=== PATIENT | male | born 1950 | race Caucasian/White ===

== ENCOUNTER 2017-08-03 07:38 | Day surgery (SDC) | payer MEDICARE ==
[2017-08-02 15:24] LABS: BASOPHILS % (AUTO) 0.1 % (0-1); EOSINOPHILS # (AUTO) 0.2 X10'3 (0-0.9); EOSINOPHILS % (AUTO) 2.5 % (0-6); LYMPHOCYTES # (AUTO) 1.4 X10'3 (1.1-4.8); LYMPHOCYTES % (AUTO) 22.6 % (21-51); MEAN CORPUSCULAR HEMOGLOBIN 30.4 PG (27.0-31.0); MEAN CORPUSCULAR HGB CONC 33.6 % (33.0-36.5); MEAN CORPUSCULAR VOLUME 90.4 FL (78-98); MEAN PLATELET VOLUME 8.6 FL (7.4-10.4); MONOCYTES # (AUTO) 0.6 X10'3 (0-0.9); MONOCYTES % (AUTO) 9.1 % (2-12); NEUTROPHILS # (AUTO) 4.1 X10'3 (1.8-7.7); NEUTROPHILS % (AUTO) 65.7 % (42-75); PRE OP HEMATOCRIT 52.2 % (42.0-52.0); PRE OP HEMOGLOBIN 17.5 g/dL (14.0-17.9); PRE OP PLATELET COUNT 151 X10'3 (140-440); RED BLOOD COUNT 5.77 X10'6 (4.70-6.10); RED CELL DISTRIBUTION WIDTH 15.2 % (11.5-14.5)
[2017-08-02 15:35] LABS: PRE OP PROTIME 10.6 SECONDS (9.0-12.0)
[2017-08-02 15:39] LABS: ALBUMIN 3.9 G/DL (3.4-5.0); ALKALINE PHOSPHATASE 99 IU/L (46-116); BLOOD UREA NITROGEN 12 MG/DL (7-18); BUN/CREATININE RATIO 11.8 (5.4-32.0); CHLORIDE 102 MMOL/L (99-107); CREATININE 1.02 MG/DL (0.60-1.10); PRE OP ALT 48 U/L (30-65); PRE OP ANION GAP 8 (8-16); PRE OP AST 29 U/L (10-37); PRE OP BILIRUB, TOTAL 0.6 MG/DL (0.0-1.0); PRE OP GLUCOSE 128 MG/DL (70-104); PRE OP POTASSIUM 4.1 MMOL/L (3.4-5.1); PRE OP SODIUM 140 MMOL/L (135-145); TOTAL CARBON DIOXIDE 30.4 MMOL/L (24-32); eGFR 73 ML/MIN
[2017-08-03] VITALS (8 sets, daily range): BP systolic 114–150; BP diastolic 77–89
[~2017-08-03] VITALS: Ht 188 cm; Wt 106.6 kg
[~2017-08-03 07:38] MED LIST: CANA300T PO; FLO0.4C PO; ROPIVAcaine 0.5% (5mg/ml) 30ml vial ONE; ROSU40TA PO; ceFAZolin 2gm in dextrose, iso 100 ML IV ONE; famotidine 20mg tablet PO ONE; ringers solution, lacted 1,000 ML IV SCH
[2017-08-03] MEDS ORDERED: ringers solution, lacted 1,000 ML IV SCH (09:17)
[2017-08-03] MEDS ORDERED: meperidine/PF 25mg/ml syringe IV PRN ×3 (09:20)
[2017-08-03] MEDS ORDERED: ondansetron/PF 4mg/2ml inj IV PRN (09:20)
[2017-08-03] MEDS ORDERED: proCHLORperazine 10 MG/2 ml inj IV PRN (09:20)
[2017-08-03] MEDS ORDERED: morphine 4 MG/ML inj SYRINge IV PRN ×2 (09:20)
[2017-08-03] MEDS ORDERED: LIDOcaine 0.5% (5mg/ml) 50ml vial ONE (10:01)
[2017-08-03] MEDS ORDERED: fentaNYL/PF 50MCG/1 ML 2ML syringe ONE ×2 (10:12→10:49)
[2017-08-03] MEDS ORDERED: MIDAZolam 5mg/5ml vial ONE (10:12)
[2017-08-03] MEDS ORDERED: propofol inj 20 ML IV ONE (10:49)
[2017-08-03] MEDS ORDERED: sodium bicarbonate 1 MEQ/1 ml inj ONE (10:49)
[2017-08-03] MEDS ORDERED: propofol inj 0 ML IV ONE (10:49)
== END 2017-08-03 11:55 | disposition home or self-care (01) ==
LOC: PRE-OP 07:38 → PAS 11:55
PROVIDERS: ATTEND Orthopaedic Surgery Hand Surgery
DX: G56.01 Carpal tunnel syndrome, right upper limb (principal); G56.21 Lesion of ulnar nerve, right upper limb; M65.331 Trigger finger, right middle finger; E11.9 Type 2 diabetes mellitus without complications; E66.9 Obesity, unspecified; N40.0 Benign prostatic hyperplasia without lower urinary tract symptoms; Z68.30 Body mass index [BMI] 30.0-30.9, adult; Z88.1 Allergy status to other antibiotic agents; Z72.89 Other problems related to lifestyle; Z79.01 Long term (current) use of anticoagulants; Z79.891 Long term (current) use of opiate analgesic; Z79.899 Other long term (current) drug therapy; Z98.890 Other specified postprocedural states
CPT/HCPCS: 26055; 29848; 36415; 64718; 80053; 82948; 85025; 85610; 85730; A6222; A6449; J0690; J2001; J2250; J2704; J2795; J3010; J7120; A7000

== ENCOUNTER 2021-05-17 12:54 | Observation (INO) | payer MEDICARE ==
[~2021-05-17] VITALS: Ht 188 cm; Wt 109.1 kg
[~2021-05-17 12:54] MED LIST changes: -ROPIVAcaine 0.5% (5mg/ml) 30ml vial ONE; -ceFAZolin 2gm in dextrose, iso 100 ML IV ONE; -famotidine 20mg tablet PO ONE; -ringers solution, lacted 1,000 ML IV SCH
[2021-05-17 13:16] LABS: BASOPHILS % (AUTO) 0.5 % (0-1); EOSINOPHILS # (AUTO) 0.1 X10'3 (0-0.9); EOSINOPHILS % (AUTO) 1.9 % (0-6); HEMATOCRIT 49.8 % (42.0-52.0); HEMOGLOBIN 16.7 g/dl (14.0-17.9); LYMPHOCYTES # (AUTO) 1.4 X10'3 (1.1-4.8); LYMPHOCYTES % (AUTO) 25.3 % (21-51); MEAN CORPUSCULAR HEMOGLOBIN 29.5 PG (27.0-31.0); MEAN CORPUSCULAR HGB CONC 33.5 g/dL (33.0-36.5); MEAN CORPUSCULAR VOLUME 87.8 FL (78-98); MEAN PLATELET VOLUME 9.6 FL (7.4-10.4); MONOCYTES # (AUTO) 0.5 X10'3 (0-0.9); MONOCYTES % (AUTO) 9.9 % (2-12); NEUTROPHILS # (AUTO) 3.4 X10'3 (1.8-7.7); NEUTROPHILS % (AUTO) 62.4 % (42-75); PLATELET COUNT 157 X10'3 (140-440); RED BLOOD COUNT 5.67 X10'6 (4.70-6.10); RED CELL DISTRIBUTION WIDTH 15.2 % (11.5-14.5); WHITE BLOOD COUNT 5.4 X10'3 (4.5-11.0)
[2021-05-17 13:31] LABS: ALANINE AMINOTRANSFERASE 35 U/L (12-78); ALBUMIN 3.8 G/DL (3.4-5.0); ALKALINE PHOSPHATASE 116 IU/L (46-116); ANION GAP 12 (8-16); ASPARTATE AMINO TRANSFERASE 19 U/L (10-37); BILIRUBIN,TOTAL 0.7 MG/DL (0.1-1.0); BLOOD UREA NITROGEN 9 MG/DL (7-18); CHLORIDE 100 MMOL/L (99-107); GLUCOSE 280 MG/DL (70-104); POTASSIUM 3.9 MMOL/L (3.5-5.1); SODIUM 138 MMOL/L (135-145); TOTAL CARBON DIOXIDE 26.3 MMOL/L (24-32); TOTAL PROTEIN 7.8 G/DL (6.4-8.2); eGFR 83 ML/MIN
--- NOTE | 2021-05-17 16:45 | NUR ---
patient received in bed 9.
[2021-05-17] MEDS ORDERED: nitroGLYCERIN 0.4mg SUBLingual tab SL PRN ×2 (16:55→17:05)
[2021-05-17] MEDS ORDERED: aspirin 81mg tab.chew PO ONE (16:55)
[2021-05-17] MEDS ORDERED: normal saline 1000ml 1,000 ML IV SCH (17:00)
[2021-05-17] MEDS ORDERED: magnesium 2GM in 50ml NS 50 ML IV PRN (17:00)
[2021-05-17] MEDS ORDERED: potassium CL 10mEq/100ml bag 100 ML IV PRN (17:00)
[2021-05-17] MEDS ORDERED: potassium Cl 20 mEq SR tablet PO PRN ×2 (17:00)
[2021-05-17] MEDS ORDERED: magnesium 4gm in 100ml NS 100 ML IV PRN (17:00)
[2021-05-17] MEDS ORDERED: morphine 2 MG/ML inj. syringe IV PRN (17:00)
[2021-05-17] MEDS ORDERED: magnesium Cl slow-release 64mg tablet PO PRN (17:00)
[2021-05-17] MEDS ORDERED: ondansetron/PF 4mg/2ml inj IV PRN (17:00)
[2021-05-17] MEDS ORDERED: dextrose 50%-water 50ml dispensing syringe IV PRN ×2 (17:05)
[2021-05-17] MEDS ORDERED: DEXTROSE 15 GM of carb/4 tabs (each vial/BOTTLE has 4 tablets) PO PRN ×2 (17:05)
[2021-05-17] MEDS ORDERED: aminophylline 500mg/20ml vial IV PRN (17:05)
[2021-05-17] MEDS ORDERED: MESSAGE TO PHARMACY PO ONE (17:05)
[2021-05-17] MEDS ORDERED: insulin Lispro (HumaLOG) vial - multi-dose SQ SCH (17:05)
[2021-05-17] MEDS ORDERED: regadenoson 0.4mg/5ml syringe IV PRN (17:05)
[2021-05-17] MEDS ORDERED: metoprolol tartrate 1mg/ml inj IV PRN (17:05)
[2021-05-17] MEDS ORDERED: glucagon, human recombinant 1mg kit SUBCUT PRN (17:05)
[2021-05-17] MEDS: lisinopril 5mg tablet PO SCH (17:16)
[2021-05-17] MEDS ORDERED: DUTA0.5C36 PO (17:32)
[2021-05-17] MEDS ORDERED: PANT40TA54 (17:32)
[2021-05-17] MEDS ORDERED: GLIM2TAB6 PO (17:32)
[2021-05-17 17:39] LABS: MAGNESIUM 1.9 MG/DL (1.5-2.4)
--- NOTE | 2021-05-17 17:53 | NUR ---
call light within reach.
[2021-05-17] MEDS: K and/or MAG REPLACEMENT MC SCH (20:00)
[2021-05-17] MEDS ORDERED: insulin glargine (Lantus) pen - multi-dose SQ SCH (21:00)
[2021-05-17] MEDS: hydrALAZINE 20mg/ml inj. IV SCH (21:58)
[2021-05-17] MEDS: acetaminophen 325mg tablet PO PRN (21:59)
[2021-05-17 22:00] VITALS: BP 169/89
--- NOTE | 2021-05-17 22:13 | NUR ---
Received report from ER nurse about patient going to room 2047D. Awaiting for patient arrival.
--- NOTE | 2021-05-17 22:25 | NUR ---
The patient, ANTELMO CASTILLO, 70 y/o, M admitted by YIFAN FORREST MD, was given written information regarding hospital policies, unit procedures and contact persons. See Admission information. Arrived via gurney, in stable condition, [id number], walk to the bedroom. Admitted for observation due to c/o chest pain to the left side X 3 days. Hx: DM II, HLD, GERD, BPH, Gout, Orth surgery. On room air, 18G to right arm.
[2021-05-18] VITALS (10 sets, daily range): BP systolic 101–162; BP diastolic 58–88
[2021-05-18] MEDS: hydrALAZINE 20mg/ml inj. IV SCH ×2 (02:00→08:00)
[2021-05-18 06:38] LABS: BASOPHILS % (AUTO) 0.4 % (0-1); EOSINOPHILS # (AUTO) 0.1 X10'3 (0-0.9); EOSINOPHILS % (AUTO) 2.3 % (0-6); HEMATOCRIT 46.6 % (42.0-52.0); HEMOGLOBIN 15.6 g/dl (14.0-17.9); LYMPHOCYTES # (AUTO) 1.8 X10'3 (1.1-4.8); LYMPHOCYTES % (AUTO) 31.1 % (21-51); MEAN CORPUSCULAR HEMOGLOBIN 29.4 PG (27.0-31.0); MEAN CORPUSCULAR HGB CONC 33.4 g/dL (33.0-36.5); MEAN CORPUSCULAR VOLUME 88.1 FL (78-98); MEAN PLATELET VOLUME 9.9 FL (7.4-10.4); MONOCYTES # (AUTO) 0.6 X10'3 (0-0.9); MONOCYTES % (AUTO) 10.1 % (2-12); NEUTROPHILS # (AUTO) 3.2 X10'3 (1.8-7.7); NEUTROPHILS % (AUTO) 56.1 % (42-75); PLATELET COUNT 148 X10'3 (140-440); RED BLOOD COUNT 5.29 X10'6 (4.70-6.10); RED CELL DISTRIBUTION WIDTH 15.3 % (11.5-14.5); WHITE BLOOD COUNT 5.7 X10'3 (4.5-11.0)
--- NOTE | 2021-05-18 06:39 | NUR ---
Problems reprioritized. Patient report given, questions answered & plan of care reviewed with VINCENZO Huggins.
[2021-05-18 06:50] LABS: ALBUMIN 3.2 G/DL (3.4-5.0); ANION GAP 8 (8-16); BLOOD UREA NITROGEN 12 MG/DL (7-18); BUN/CREATININE RATIO 16.7 (5.4-32.0); CALCIUM 8.4 MG/DL (8.5-10.1); CHLORIDE 106 MMOL/L (99-107); CREATININE 0.72 MG/DL (0.60-1.10); GLUCOSE 203 MG/DL (70-104); POTASSIUM 3.7 MMOL/L (3.5-5.1); SODIUM 141 MMOL/L (135-145); TOTAL CARBON DIOXIDE 27.4 MMOL/L (24-32); eGFR > 90 ML/MIN
[2021-05-18] MEDS: acetaminophen 325mg tablet PO PRN (07:29)
[2021-05-18] MEDS: K and/or MAG REPLACEMENT MC SCH (08:00)
[2021-05-18] MEDS ORDERED: LISI5TAB22 PO ×2 (09:18)
[2021-05-18] MEDS ORDERED: NITR0.4T51 SL ×2 (09:18)
[2021-05-18] MEDS: lisinopril 5mg tablet PO SCH (11:56)
--- NOTE | 2021-05-18 12:26 | NUR ---
Paged for following concern; Mark Wheeler RM [id number] Please review Lexiscan and advise on discharge Bhavna LOYA [id number]
--- NOTE | 2021-05-18 17:00 | NUR ---
Patient discharged to home at this time with all personal belongings including cell phone. Discharge instructions reviewed with patient who verbalized understanding. Patient has no questions or concerns at this time.
== END 2021-05-18 17:15 | disposition home or self-care (01) ==
LOC: ER 12:55 → ED HOLD 17:01 → INTOOBSV 17:01 → PCU 3S 21:25
PROVIDERS: ADMIT Internal Medicine; ATTEND Internal Medicine
DX: I20.9 Angina pectoris, unspecified (principal); I10 Essential (primary) hypertension; E78.5 Hyperlipidemia, unspecified; K21.9 Gastro-esophageal reflux disease without esophagitis; N40.0 Benign prostatic hyperplasia without lower urinary tract symptoms; E11.9 Type 2 diabetes mellitus without complications; M10.9 Gout, unspecified; E78.00 Pure hypercholesterolemia, unspecified; Z79.84 Long term (current) use of oral hypoglycemic drugs; Z79.899 Other long term (current) drug therapy
CPT/HCPCS: 36415; 71045; 78452; 80048; 80053; 82948; 83036; 83735; 83880; 84132; 84484; 85025; 87081; 93005; 93017; 96361; 96374; 99285; A9500; G0378; J0360; J1815; J2785; J7030

== ENCOUNTER 2021-05-25 06:46 | Day surgery (SDC) | payer MEDICARE ==
[2021-05-23 14:57] LABS: BASOPHILS % (AUTO) 0.5 % (0-1); EOSINOPHILS # (AUTO) 0.1 X10'3 (0-0.9); EOSINOPHILS % (AUTO) 1.8 % (0-6); HEMATOCRIT 46.4 % (42.0-52.0); HEMOGLOBIN 15.5 g/dl (14.0-17.9); LYMPHOCYTES # (AUTO) 1.6 X10'3 (1.1-4.8); LYMPHOCYTES % (AUTO) 26.7 % (21-51); MEAN CORPUSCULAR HEMOGLOBIN 29.3 PG (27.0-31.0); MEAN CORPUSCULAR HGB CONC 33.4 g/dL (33.0-36.5); MEAN CORPUSCULAR VOLUME 87.8 FL (78-98); MEAN PLATELET VOLUME 9.8 FL (7.4-10.4); MONOCYTES # (AUTO) 0.6 X10'3 (0-0.9); MONOCYTES % (AUTO) 9.5 % (2-12); NEUTROPHILS # (AUTO) 3.6 X10'3 (1.8-7.7); NEUTROPHILS % (AUTO) 61.5 % (42-75); PLATELET COUNT 152 X10'3 (140-440); RED BLOOD COUNT 5.29 X10'6 (4.70-6.10); RED CELL DISTRIBUTION WIDTH 14.8 % (11.5-14.5); WHITE BLOOD COUNT 5.9 X10'3 (4.5-11.0)
[2021-05-23 15:11] LABS: APTT 27 SECONDS (22-32)
[2021-05-23 15:13] LABS: ALANINE AMINOTRANSFERASE 36 U/L (12-78); ALBUMIN 3.8 G/DL (3.4-5.0); ALBUMIN/GLOBULIN RATIO 1.1 (1.1-1.5); ALKALINE PHOSPHATASE 82 IU/L (46-116); ANION GAP 11 (8-16); ASPARTATE AMINO TRANSFERASE 19 U/L (10-37); BILIRUBIN,TOTAL 0.8 MG/DL (0.1-1.0); BLOOD UREA NITROGEN 14 MG/DL (7-18); BUN/CREATININE RATIO 15.7 (5.4-32.0); CALCIUM 8.8 MG/DL (8.5-10.1); CHLORIDE 101 MMOL/L (99-107); CREATININE 0.89 MG/DL (0.60-1.10); GLUCOSE 187 MG/DL (70-104); POTASSIUM 4.1 MMOL/L (3.5-5.1); SODIUM 137 MMOL/L (135-145); TOTAL CARBON DIOXIDE 24.8 MMOL/L (24-32); TOTAL PROTEIN 7.2 G/DL (6.4-8.2); eGFR 84 ML/MIN
[2021-05-25] VITALS (15 sets, daily range): BP systolic 129–162; BP diastolic 78–97
[~2021-05-25] VITALS: Ht 188 cm; Wt 107.2 kg
[~2021-05-25 06:46] MED LIST changes: -CANA300T PO; +DUTA0.5C36 PO; +GLIM2TAB6 PO; +LISI5TAB22 PO; +NITR0.4T51 SL; +PANT40TA54
[2021-05-25] MEDS ORDERED: nitroGLYCERIN 0.4mg SUBLingual tab SL PRN ×2 (07:00→11:00)
[2021-05-25] MEDS ORDERED: LORazepam 0.5 MG tablet PO PRN (07:00)
[2021-05-25] MEDS ORDERED: diphenhydrAMINE 25mg capsule PO PRN (07:00)
[2021-05-25] MEDS ORDERED: normal saline 1,000 ML IV SCH (07:00)
[2021-05-25] MEDS ORDERED: MESSAGE TO PHARMACY PO ONE (07:05)
[2021-05-25] MEDS ORDERED: DEXTROSE 15 GM of carb/4 tabs (each vial/BOTTLE has 4 tablets) PO PRN ×2 (07:05)
[2021-05-25] MEDS ORDERED: insulin Lispro (HumaLOG) vial - multi-dose SQ SCH (07:05)
[2021-05-25] MEDS ORDERED: dextrose 50%-water 50ml dispensing syringe IV PRN ×2 (07:05)
[2021-05-25] MEDS ORDERED: glucagon, human recombinant 1mg kit SUBCUT PRN (07:05)
[2021-05-25] MEDS ORDERED: LISI5TAB22 PO (07:41)
[2021-05-25] MEDS ORDERED: NITR0.4T51 SL (07:41)
[2021-05-25] MEDS ORDERED: iohexol 350MG/ML 100ml bottle IV ONE (08:52)
[2021-05-25] MEDS ORDERED: midazolam 1 mg/ML 2ml injection ONE ×2 (08:52→09:51)
[2021-05-25] MEDS ORDERED: fentaNYL/PF 50MCG/1 ML 2ML syringe ONE (08:52)
[2021-05-25] MEDS ORDERED: iohexol 350 MG/ML 50ML vial IV ONE ×2 (08:52→10:01)
[2021-05-25] MEDS ORDERED: LIDOcaine 1% (10mg/ml)w/preservative inj. 20ml MDV ONE (08:52)
--- NOTE | 2021-05-25 09:10 | NUR ---
Pt to clinical laboratory medical director.
[2021-05-25] MEDS ORDERED: nitroGLYCERIN-Tridil 50MG/D5W 250 ML IV ONE (09:48)
--- NOTE | 2021-05-25 10:35 | NUR ---
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 Dressing to Right groin CD&I, no bleeding, bruising or hematoma. Pedal pulses +.
--- NOTE | 2021-05-25 10:50 | NUR ---
Pt eating breakfast burrito and drinking coffee. Bed tilted in reverse Trendelenburg.
[2021-05-25] MEDS ORDERED: proCHLORperazine 10 MG/2 ml inj IV PRN (11:00)
[2021-05-25] MEDS ORDERED: HYDROcodone/acetaminophen 10/325mg tab PO PRN (11:00)
[2021-05-25] MEDS ORDERED: normal saline 1000ml 1,000 ML IV ONE (11:00)
[2021-05-25] MEDS ORDERED: OXAZEpam 15mg capsule PO PRN (11:00)
[2021-05-25] MEDS ORDERED: HYDROcodone/acetaminophen 5mg/325mg tablet PO PRN (11:00)
[2021-05-25] MEDS ORDERED: ondansetron/PF 4mg/2ml inj IV PRN (11:00)
--- NOTE | 2021-05-25 13:00 | NUR ---
Pt states he's hungry, turkey sandwich given.
--- NOTE | 2021-05-25 16:00 | NUR ---
HOB elevated to 45 degrees. Pt right groin site stable, no bleeding, bruising or hematoma.
--- NOTE | 2021-05-25 16:30 | NUR ---
Pt sat at EOB and amb in hallway, gait steady, pt amb to rest room, void in toilet. Right groin site stable dressing CD&I, no bleeding, bruising or hematoma noted. Pt dressing self at bedside.
--- NOTE | 2021-05-25 17:00 | NUR ---
PIV DC cath intact. DC to home with daughter. Transferred to private car via WC, pt able to transfer self to car.
[2021-05-25] MEDS ORDERED: insulin glargine (Lantus) pen - multi-dose SQ SCH (21:00)
== END 2021-05-25 17:00 | disposition home or self-care (01) ==
LOC: SSTAY O 06:46
PROVIDERS: ATTEND Internal Medicine Cardiovascular Disease
DX: R94.39 Abnormal result of other cardiovascular function study (principal); I25.119 Atherosclerotic heart disease of native coronary artery with unspecified angina pectoris; K21.9 Gastro-esophageal reflux disease without esophagitis; I10 Essential (primary) hypertension; E11.9 Type 2 diabetes mellitus without complications; M10.9 Gout, unspecified; N40.1 Benign prostatic hyperplasia with lower urinary tract symptoms; E78.5 Hyperlipidemia, unspecified; Z87.891 Personal history of nicotine dependence; Z79.01 Long term (current) use of anticoagulants; Z79.899 Other long term (current) drug therapy
CPT/HCPCS: 36415; 71046; 80053; 82948; 83036; 85025; 85610; 85730; 93458; 99152; 99153; C1751; C1760; C1769; J1644; J2250; J3010; J3490; Q0163; Q9967; A4620; A4663; A6258; J1815

== ENCOUNTER 2021-05-30 13:27 | Outpatient (CLI) | payer MEDICARE | END 2021-05-30 23:59 | disposition home or self-care (01) | LOC: VAS 13:27 | PROVIDERS: ATTEND Internal Medicine Cardiovascular Disease | DX: I72.4 Aneurysm of artery of lower extremity (principal) | CPT/HCPCS: 93926 ==

== ENCOUNTER 2022-06-30 12:27 | Emergency (ER) | payer MEDICARE ==
[~2022-06-30] VITALS: Ht 188 cm; Wt 111.0 kg
[2022-06-30 12:53] VITALS: BP 181/58
[2022-06-30 13:18] LABS: BASOPHILS % (AUTO) 0.5 % (0-1); EOSINOPHILS # (AUTO) 0.1 X10'3 (0-0.9); EOSINOPHILS % (AUTO) 2.7 % (0-6); HEMATOCRIT 44.2 % (42.0-52.0); HEMOGLOBIN 14.5 g/dl (14.0-17.9); LYMPHOCYTES # (AUTO) 1.3 X10'3 (1.1-4.8); MEAN CORPUSCULAR HEMOGLOBIN 28.7 PG (27.0-31.0); MEAN CORPUSCULAR HGB CONC 32.8 g/dL (33.0-36.5); MEAN CORPUSCULAR VOLUME 87.5 FL (78-98); MEAN PLATELET VOLUME 9.3 FL (7.4-10.4); MONOCYTES # (AUTO) 0.4 X10'3 (0-0.9); MONOCYTES % (AUTO) 8.2 % (2-12); NEUTROPHILS # (AUTO) 3.1 X10'3 (1.8-7.7); NEUTROPHILS % (AUTO) 61.6 % (42-75); PLATELET COUNT 143 X10'3 (140-440); RED BLOOD COUNT 5.05 X10'6 (4.70-6.10); RED CELL DISTRIBUTION WIDTH 14.7 % (11.5-14.5)
[2022-06-30 13:27] LABS: ALANINE AMINOTRANSFERASE 34 U/L (12-78); ALBUMIN 3.7 G/DL (3.4-5.0); ALBUMIN/GLOBULIN RATIO 1.1 (1.1-1.5); ALKALINE PHOSPHATASE 84 IU/L (46-116); ANION GAP 8 (8-16); ASPARTATE AMINO TRANSFERASE 25 U/L (10-37); BILIRUBIN,TOTAL 0.3 MG/DL (0.1-1.0); BLOOD UREA NITROGEN 15 MG/DL (7-18); BUN/CREATININE RATIO 14.2 (10.0-20.0); CALCIUM 8.5 MG/DL (8.5-10.1); CHLORIDE 104 MMOL/L (99-107); CREATININE 1.06 MG/DL (0.60-1.10); GLUCOSE 198 MG/DL (70-104); POTASSIUM 4.4 MMOL/L (3.5-5.1); SODIUM 139 MMOL/L (135-145); TOTAL CARBON DIOXIDE 26.8 MMOL/L (24-32); TOTAL PROTEIN 7.2 G/DL (6.4-8.2); eGFR 68 ML/MIN
[2022-06-30] MEDS ORDERED: ondansetron 4mg rapidly disintigrating tab PO ONE (14:55)
[2022-06-30] MEDS ORDERED: ketorolac trometh. 30mg/ml inj. IM ONE (14:55)
[2022-06-30] MEDS ORDERED: HYDROcodone/acetaminophen 10/325mg tab PO ONE (14:55)
[2022-06-30] MEDS ORDERED: CYCL-1 PO (15:35)
== END 2022-06-30 16:00 | disposition home or self-care (01) ==
LOC: ER 12:28
DX: M94.0 Chondrocostal junction syndrome [Tietze] (principal); E78.00 Pure hypercholesterolemia, unspecified; K21.9 Gastro-esophageal reflux disease without esophagitis; E11.9 Type 2 diabetes mellitus without complications; Z79.899 Other long term (current) drug therapy; Z79.1 Long term (current) use of non-steroidal anti-inflammatories (NSAID); Z79.2 Long term (current) use of antibiotics
CPT/HCPCS: 36415; 71045; 80053; 83880; 84484; 85025; 93005; 96372; 99285; J1885

== ENCOUNTER → 2024-11-12 | Day surgery (SDC) | payer MEDICARE ==
[2024-11-12] VITALS (11 sets, daily range): BP systolic 117–146; BP diastolic 67–88; PULSE 64–77; RESP 16; TEMP 98.3; O2SAT 93–97
[~2024-11-12] VITALS: Ht 188 cm; Wt 107.5 kg
[~2024-11-12] MED LIST changes: +CYCL-1 PO; +DEXTROSE 15 GM of carb/4 tabs (each vial/BOTTLE has 4 tablets) PO PRN; -FLO0.4C PO; +GLIP5TAB23 PO; +HYDROcodone/acetaminophen 10/325mg tab PO PRN; +HYDROcodone/acetaminophen 5mg/325mg tablet PO PRN; +INSULIN LISPRO 100 UNIT/ML INSULN.PEN MULTI-DOSE SQ SCH; +LIDOcaine 1% 30ml preserv. free vial ONE; +LOSA25TA41 PO; +NITR1PAT68; +OXAZEpam 15mg capsule PO PRN; +PIOG30TA71 PO; +ROSU40TA89 PO; +SITA25TA3 PO; +TAMS-55 PO; +TIRZ15PE; +dextrose 50%-water 50ml dispensing syringe IV PRN; +fentaNYL/PF 50MCG/1 ML 2ML syringe ONE; +glucagon, human recombinant 1mg kit SUBCUT PRN; +iohexol 350 MG/ML 50ML vial IV ONE; +midazolam 1 mg/ML 2ml injection ONE; +normal saline 1000ml 1,000 ML IV ONE; +ondansetron/PF 4mg/2ml inj IV PRN
--- NOTE | 2024-11-12 09:21 | ELECTROCARDIOGRAPH REPORT ---
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 SAJAN Doshi Measurements Intervals [place] Rate: 73 P: -21 UT: 212 QRS: 10 QRSD: 103 T: 10 QT: 415 QTc: 458 Interpretive Statements Sinus rhythm Borderline T abnormalities, inferior leads Baseline wander in lead(s) II Electronically Signed On 11-12-2024 14:44:[address] SAJAN Doshi Please click the below link to view image of tracing.
[2024-11-12 09:29] LABS: MEAN PLATELET VOLUME 9.5 FL (7.4-10.4); RED CELL DISTRIBUTION WIDTH 15.2 % (11.5-14.5)
[2024-11-12 09:45] LABS: CREATININE 1.04 MG/DL (0.60-1.10); PRO BRAIN NATRIURETIC PEPTIDE 289 PG/ML (0-450); TOTAL CARBON DIOXIDE 33.2 MMOL/L (24-32); eCRCL 70 ML/MIN; eGFR 69 ML/MIN
--- NOTE | 2024-11-12 09:52 | RADIOLOGY REPORT ---
CHEST RADIOGRAPH Indication: preop heart cath Technique: Frontal and lateral view of the chest was obtained Comparison: CHEST,SINGLE VIEW on DOS: 06/30/22, CHEST,TWO VIEWS on DOS: 05/23/21, CHEST,SINGLE VIEW on DOS: 05/17/21 FINDINGS: Lines and Tubes: None Lungs: Clear Pleura: No effusion. No pneumothorax. Cardiomediastinal contours: Unremarkable Bones: Unremarkable IMPRESSION: No evidence of acute disease.
[2024-11-12 09:59] LABS: APTT 27 SECONDS (22-32); INR 1.1 INR
[2024-11-12 11:57] LABS: ISTAT HGB ART 14.6 g/dl (14.0-17.9); ISTAT Hct ART 43 %PCV (42-52); ISTAT O2 SATURATION ARTERIAL 91 % (95-98); ISTAT SOURCE ART
[2024-11-12 14:54] LABS: ISTAT HGB MIX 14.3 g/dl (14.0-17.9); ISTAT Hct MIX 42 %PCV (42-52); ISTAT O2 SATURATION MIX VENOUS 71 % (60-80); ISTAT SOURCE BLNK
--- NOTE | 2024-11-13 00:28 | CARDIOLOGY REPORT ---
DATE OF SERVICE: 11/12/2024 DICTATING PHYSICIAN: Frank Boyd MD PROCEDURES: 1. Right heart catheterization, cardiac output, AO and PA saturation. 2. Left heart catheterization. 3. Left ventriculography. 4. Selective left and right coronary arteriography. 5. Right iliofemoral arteriogram, AngioSeal application. 6. Conscious sedation administration, 40 minutes. BRIEF HISTORY AND INDICATION: A 74-year-old male has class 3 dyspnea on exertion and angina pectoris. He has degenerative joint disease of the spine. Known atherosclerotic heart disease with prior heart catheterization showing false positive nuclear stress test in the inferior wall and an asymptomatic 70% left anterior descending narrowing with no ischemia. He has hypertension, noninsulin-dependent diabetes mellitus, benign prostatic hypertrophy with lower urinary tract symptoms. His symptoms have become worse and he has been using nitroglycerin patch with minimal improvement. Risks, benefits, and alternatives of diagnostic heart catheterization were discussed with him and he has decided to proceed. Risks included, not restricted to the stroke, myocardial infarction, renal failure, neurologic risks complications, bleeding complications, allergic reaction. TECHNIQUE: Following usual sterile preparation, draping, right groin was infiltrated with 10 mL of 1% lidocaine local anesthetic. Using single wall puncture technique, J-tip guidewire lead, a 6-Belgian sheath was introduced into the right femoral artery. Benadryl 25 mg was administered intravenously. The patient was maintained on oxygen 2 L/min, normal saline 100 mL per hour. Selective left and right coronary arteriography was performed. Left ventriculography and right anterior oblique projection was performed with 6-Belgian femoral Durga-shaped catheters and straight pigtail catheter. A 5 mL of 1% lidocaine was administered medial to the previous puncture site and using single wall puncture technique with J-tip guidewire lead, an 8-Belgian sheath was introduced into the right femoral vein. A 7.5-Belgian Excello-Ashlie catheter was used for right heart catheterization, oximetry in the AO and PA position, cardiac outputs. In termination, right iliofemoral arteriogram was performed. AngioSeal was applied in laborer concrete paving. Hemostasis was obtained. There were no complications. Excello-Ashlie catheter and venous sheath were removed and hemostasis was obtained in the laborer concrete paving. Fluoroscopy time was 8.9 minutes. Radiation exposure was 19,632 cGy/cm2. A 100 mL of Omnipaque 350 contrast was administered. FINDINGS: 6 feet 2 inches, 238 pounds, AO 91%, PA 71%, cardiac output 7.6 L/min, cardiac index 3.28. AO 138/60, LV 138/3/16. RA 16/14, mean 15; RV 45/7-14, PA 31/15, mean PA 23; PACW 15/14 with mean of 14. There is calcification of the left main coronary, left anterior descending, and left circumflex. There is 10% left main coronary narrowing. A 30% proximal and 50% proximal left anterior descending narrowing. Left anterior descending barely reaches the apex. Diagonal has a 40% narrowing of 1.5 mm vessel. Left circumflex proximal 30% narrowing. Right coronary is ectatic 7 mm proximally, 5 mm at crux. Posterior descending has 20% narrowing. Posterior descending and posterolateral reached the apex of the myocardium. Right iliofemoral artery was smooth. RESULTS: 1. Normal intracardiac pressures, normal cardiac output, normal oximetry. 2. Ejection fraction of 70%, normal wall motion. 3. Calcification of the left main coronary, left anterior descending, and left circumflex. 4. A 10% left main coronary artery narrowing. 5. Serial proximal 30% and 50% left anterior descending narrowing. 6. A 40% diagonal narrowing. 7. Proximal 30% left circumflex narrowing. 8. Ectatic right coronary, 7 mm proximally, 5 mm at crux. PDA with 20% narrowing. COMMENT: The patient's class 3 dyspnea on exertion is not explicable by heart catheterization findings. His angina pectoris is not explicable by heart catheterization findings. He is recommended to have followup pulmonary function testing, followup CAT scanning. Frank Boyd MD TID: [id number] RECEIPT: [id number] TR/KARLA cc: Manuel Campo MD
== END | disposition home or self-care (01) ==
LOC: SSTAY O 08:32
PROVIDERS: ATTEND Internal Medicine Cardiovascular Disease
DX: I25.118 Atherosclerotic heart disease of native coronary artery with other forms of angina pectoris (principal); I10 Essential (primary) hypertension; E78.5 Hyperlipidemia, unspecified; E11.9 Type 2 diabetes mellitus without complications; I73.9 Peripheral vascular disease, unspecified; Z79.01 Long term (current) use of anticoagulants; Z79.899 Other long term (current) drug therapy
CPT/HCPCS: 36415; 71046; 80048; 82803; 82948; 83036; 83880; 84484; 85014; 85025; 85610; 85730; 93005; 93460; 99152; 99153; A6258; A6402; C1751; C1760; C1769; J1200; J1644; J1815; J2003; J2250; J3010; J7030; Q9967; A6449

== ENCOUNTER 2024-12-10 13:43 | Outpatient (CLI) | payer MEDICARE ==
[~2024-12-10] VITALS: Ht 181.6 cm; Wt 108.9 kg
[~2024-12-10 13:43] MED LIST changes: -CYCL-1 PO; -DEXTROSE 15 GM of carb/4 tabs (each vial/BOTTLE has 4 tablets) PO PRN; -HYDROcodone/acetaminophen 10/325mg tab PO PRN; -HYDROcodone/acetaminophen 5mg/325mg tablet PO PRN; -INSULIN LISPRO 100 UNIT/ML INSULN.PEN MULTI-DOSE SQ SCH; -LIDOcaine 1% 30ml preserv. free vial ONE; -NITR0.4T51 SL; -OXAZEpam 15mg capsule PO PRN; -ROSU40TA PO; -dextrose 50%-water 50ml dispensing syringe IV PRN; -fentaNYL/PF 50MCG/1 ML 2ML syringe ONE; -glucagon, human recombinant 1mg kit SUBCUT PRN; -iohexol 350 MG/ML 50ML vial IV ONE; -midazolam 1 mg/ML 2ml injection ONE; -normal saline 1000ml 1,000 ML IV ONE; -ondansetron/PF 4mg/2ml inj IV PRN
[2024-12-10 14:25] LABS: ABG BASE EXCESS 1.0 mmol/L (-2.0-3.0); ABG HCO3 25.2 mmol/L (21.0-28.0); ABG OXYGEN SATURATION 94.3 % (94.0-98.0); ABG PCO2 (T) 38.6 mmHg (35.0-48.0); ABG PH (T) 7.432 (7.350-7.450); ABG PO2 (T) 69.1 mmHg (83.0-108.0); ALLEN'S TEST POSITIVE; FCOHb 0.4 % (0.5-1.5); FHHb 5.7 % (0.0-5.0); FIO2 21.0 mmHg/%; FMetHb 0.3 % (0.0-1.5); FO2Hb 93.6 % (94.0-98.0); MODE ROOM AIR; PATIENT TEMPERATURE 37.0; TOTAL HEMOGLOBIN 15.7 G/dl (13.5-17.5)
[2024-12-10] MEDS: albuterol 2.5 MG/3 ML nebule NEB ONE (15:03)
[2024-12-10 15:06] VITALS: PULSE 83; RESP 15; O2SAT 98
[2024-12-10 15:17] VITALS: PULSE 79; RESP 16
== END 2024-12-10 23:59 | disposition home or self-care (01) ==
LOC: RT 13:43
PROVIDERS: ATTEND Internal Medicine Cardiovascular Disease
DX: J44.9 Chronic obstructive pulmonary disease, unspecified (principal); J68.4 Chronic respiratory conditions due to chemicals, gases, fumes and vapors; R06.02 Shortness of breath
CPT/HCPCS: 36600; 82803; 85018; 94060; 94727; 94729; 94760; J7030